=== PATIENT | female | born 1960 | race African-American/Black ===

== ENCOUNTER 2022-10-07 08:07 | Day surgery (SDC) | payer OTHER ==
[2022-10-03 14:16] VITALS: BMI 35.9
[2022-10-07 08:24] VITALS: RESP 18
[2022-10-07 10:33] VITALS: TEMP 97.1
[2022-10-07 10:46] VITALS: BP 107/47; PULSE 82
== END 2022-10-07 11:08 | disposition home or self-care (01) ==
LOC: FASU-ENDO 08:07
PROVIDERS: ATTEND Internal Medicine Gastroenterology
PROC: 0DBM8ZX Excision of Descending Colon, Via Natural or Artificial Opening Endoscopic, Diagnostic (ICD-10-PCS; principal; 2022-10-07 10:01)
DX: Z12.11 Encounter for screening for malignant neoplasm of colon (principal); D12.4 Benign neoplasm of descending colon; Z80.0 Family history of malignant neoplasm of digestive organs; K57.30 Diverticulosis of large intestine without perforation or abscess without bleeding
CPT/HCPCS: 82962; 88305-TC